=== PATIENT | male | born 1975 | race Hispanic/Latino ===

== ENCOUNTER 2018-02-08 21:55 | Emergency (ER) | payer SELFPAY ==
[2018-02-08] MEDS ORDERED: Diazepam 5 MG TAB ONE (22:23)
== END 2018-02-08 23:12 | disposition home or self-care (01) ==
LOC: NAV ERS 21:55
DX: G44.209 Tension-type headache, unspecified, not intractable (principal); M62.838 Other muscle spasm; I10 Essential (primary) hypertension; F32.9 Major depressive disorder, single episode, unspecified; F17.220 Nicotine dependence, chewing tobacco, uncomplicated; Z79.899 Other long term (current) drug therapy
CPT/HCPCS: 99284